=== PATIENT | female | born 1985 | race Caucasian/White ===

== ENCOUNTER 2017-08-22 08:20 | Emergency (ER) | payer MEDICAID ==
[2017-08-22] MEDS ORDERED: HYDROMORPHONE HCL INJ/PF 2 MG/ML AMPULE IV ONE (09:06)
[2017-08-22] MEDS ORDERED: ONDANSETRON HCL INJ/PF 4 MG/2 ML SDV IV ONE (09:06)
--- NOTE | 2017-08-22 09:11 | ER Document Report ---
ED Medical Screen (RME) - General Chief Complaint: Abdominal Pain Stated Complaint: CHEST/ABDOMINAL PAIN Time Seen by Provider: 08/22/17 09:06 Notes: Patient is a 32-year-old female, past medical history pancreatitis 5 years ago, history of alcoholism, presents with epigastric and right upper quadrant abdominal pain for the past day. She was drinking wine 2 nights ago celebration of her sister's birthday. Denies history of gallstones. PE: RUQ tenderness. NAD. RRR. Lungs CTAB. I have greeted and performed a rapid initial assessment of this patient. A comprehensive ED assessment and evaluation of the patient, analysis of test results and completion of the medical decision making process will be conducted by additional ED providers. TRAVEL OUTSIDE OF THE [place] IN LAST 30 DAYS: No - Related Data Allergies/Adverse Reactions: No Known Allergies Allergy (Unverified 08/22/17 08:21) Past Medical History - Social History Chew tobacco use (# tins/day): No Frequency of alcohol use: Occasional Drug Abuse: None Renal/ Medical History: Denies: Hx Peritoneal Dialysis Physical Exam - Vital signs Vitals: Temp Pulse Resp BP Pulse Ox 97.5 F 80 18 131/89 H 97 08/22/17 08:35 08/22/17 08:35 08/22/17 08:35 08/22/17 08:35 08/22/17 08:35 Course - Vital Signs Vital signs: Temp Pulse Resp BP Pulse Ox 97.5 F 80 18 131/89 H 97 08/22/17 08:35 08/22/17 08:35 08/22/17 08:35 08/22/17 08:35 08/22/17 08:35
[2017-08-22 09:36] LABS: ABSOLUTE BASOPHILS # (AUTO) 0.1 10^3/uL (0.0-0.2); ABSOLUTE EOSINOPHILS # (AUTO) 0.1 10^3/uL (0.0-0.6); ABSOLUTE LYMPHOCYTES (AUTO) 3.1 10^3/uL (0.5-4.7); ABSOLUTE MONOCYTES (AUTO) 0.8 10^3/uL (0.1-1.4); BASOPHILS % (AUTO) 0.7 % (0-2); EOSINOPHILS % (AUTO) 0.5 % (0-6); HEMATOCRIT 42.4 % (36.0-47.0); HEMOGLOBIN 14.4 g/dL (12.0-15.5); LYMPHOCYTES % (AUTO) 28.5 % (13-45); MEAN CORPUSCULAR HEMOGLOBIN 30.9 pg (27.0-33.4); MEAN CORPUSCULAR VOLUME 91 fl (80-97); MONOCYTES % (AUTO) 7.5 % (3-13); PLATELET COUNT 340 10^3/uL (150-450); RED BLOOD COUNT 4.66 10^6/uL (3.72-5.28); RED CELL DISTRIBUTION WIDTH 14.8 % (11.5-14.0); SEGMENTED NEUTROPHILS % (AUTO) 62.8 % (42-78); TOTAL CELLS COUNTED % (AUTO) 100 %; WHITE BLOOD COUNT 11.1 10^3/uL (4.0-10.5)
[2017-08-22 09:40] LABS: APPEARANCE,URINE CLEAR; BILIRUBIN,URINE NEGATIVE (NEGATIVE); COLOR,URINE STRAW; GLUCOSE, URINE NEGATIVE (NEGATIVE); KETONES,URINE NEGATIVE (NEGATIVE); LEUKOCYTE ESTERASE,URINE NEGATIVE (NEGATIVE); NITRITE,URINE NEGATIVE (NEGATIVE); PROTEIN,URINE NEGATIVE (NEGATIVE); URINE SPECIFIC GRAVITY 1.008; UROBILINOGEN,URINE NEGATIVE mg/dL (<2.0)
[2017-08-22] MEDS ORDERED: NORMAL SALINE 1000 ML 1,000 ML IV ONE (09:42)
--- NOTE | 2017-08-22 09:45 | ER Document Report ---
ED General - General Chief Complaint: Abdominal Pain Stated Complaint: CHEST/ABDOMINAL PAIN Time Seen by Provider: 08/22/17 09:06 Notes: 32-year-old female presents to the ER complaining of epigastric and right upper quadrant abdominal pain. Patient has a long history of alcoholic pancreatitis. Patient has been out drinking due to her daughter's birthday. The patient complains of epigastric and right upper quadrant pain causes aching similar to her prior episodes of pancreatitis. She has had nausea but denies vomiting. Describes the pain as severe drinking does make it worse. Denies rashes fever chills sore throat. Denies chest pain denies shortness of breath. Denies any falls or trauma. Denies black bloody or tarry stools. Denies hematuria or dysuria. TRAVEL OUTSIDE OF THE [place] IN LAST 30 DAYS: No - Related Data Allergies/Adverse Reactions: amoxicillin Allergy (Verified 08/22/17 09:32) Penicillins Allergy (Verified 08/22/17 09:32) Past Medical History - Social History Smoking Status: Former Smoker Chew tobacco use (# tins/day): No Frequency of alcohol use: Occasional Drug Abuse: None Family History: None Patient has suicidal ideation: No Patient has homicidal ideation: No Renal/ Medical History: Denies: Hx Peritoneal Dialysis Review of Systems - Review of Systems Cardiovascular: denies: Chest pain Respiratory: denies: Short of breath Gastrointestinal: Abdominal pain, Nausea. denies: Diarrhea, Vomiting, Constipation Genitourinary: denies: Dysuria, Hematuria -: Yes All other systems reviewed and negative Physical Exam - Vital signs Vitals: Temp Pulse Resp BP Pulse Ox 97.5 F 80 18 131/89 H 97 08/22/17 08:35 08/22/17 08:35 08/22/17 08:35 08/22/17 08:35 08/22/17 08:35 - Notes Notes: GENERAL_APPEARANCE: well_nourished, alert, cooperative, appears uncomfortable VITALS: reviewed, see vital signs table. HEAD: no_swelling\tenderness on the head. EYES: PERRL, EOMI, conjunctiva_clear. NOSE: no_nasal_discharge. MOUTH: (-)decreased moisture. THROAT: no_tonsilar_inflammation, no_airway_obstruction. no_lymphadenopathy NECK: supple, no_neck_tenderness, (-)thyromegaly. BACK: no_back_tenderness. CHEST_WALL: no_chest_tenderness. LUNGS: no_wheezing, no_rales, no_rhonchi, (-)accessory muscle use, good air exchange bilateral. HEART: normal_rate, normal_rhythm, normal_S1, normal_S2, (-)S3, (-)S4, no_ murmur, no_rub. ABDOMEN: normal_BS, soft, epigastric_abd_tenderness, (-)guarding, (-)rebound, no_organomegaly, no_abd_masses. EXTREMITIES: good pulses in all_extremities, no_swelling\tenderness in the extremities, no_edema. SKIN: warm, dry, good_color, no_rash. MENTAL_STATUS: speech_clear, oriented_X_3, normal_affect, responds_ appropriately to questions. Course - Re-evaluation Re-evalutation: 08/22/17 09:44 Triage placed orders. The patient has a history of pancreatitis and has been out drinking alcohol. She is having epigastric and right upper quadrant abdominal pain. Nausea. She still smells of alcohol will get an alcohol level. We will give her IV fluids. Will check some lab work triage ordered an ultrasound. 08/22/17 12:28 Abdomen Ultrasound 08/22/17 09:11 IMPRESSION: Contracted gallbladder without stones. Laboratory 08/22/17 08/22/17 08/22/17 09:10 09:10 09:10 WBC 11.1 H RBC 4.66 Hgb 14.4 Hct 42.4 MCV 91 MCH 30.9 MCHC 34.0 RDW 14.8 H Plt Count 340 Seg Neutrophils % 62.8 Lymphocytes % 28.5 Monocytes % 7.5 Eosinophils % 0.5 Basophils % 0.7 Absolute Neutrophils 7.0 Absolute Lymphocytes 3.1 Absolute Monocytes 0.8 Absolute Eosinophils 0.1 Absolute Basophils 0.1 Sodium 144.9 Potassium 4.5 Chloride 106 Carbon Dioxide 27 Anion Gap 12 BUN 17 Creatinine 0.70 Est GFR ( Amer) > 60 Est GFR (Non-Af Amer) > 60 Glucose 90 Calcium 9.3 Total Bilirubin 0.4 Direct Bilirubin 0.3 Neonat Total Bilirubin Not Reportable Neonat Direct Bilirubin Not Reportable Neonat Indirect Bili Not Reportable AST 63 H ALT 44 Alkaline Phosphatase 65 Total Protein 8.1 Albumin 4.8 Lipase 130.5 Urine Color STRAW Urine Appearance CLEAR Urine pH 5.0 Ur Specific [place] 1.008 Urine Protein NEGATIVE Urine Glucose (UA) NEGATIVE Urine Ketones NEGATIVE Urine Blood MODERATE H Urine Nitrite NEGATIVE Urine Bilirubin NEGATIVE Urine Urobilinogen NEGATIVE Ur Leukocyte Esterase NEGATIVE Urine WBC (Auto) 1 Urine RBC (Auto) 0 Urine Bacteria (Auto) TRACE Urine Mucus (Auto) RARE Urine Ascorbic Acid NEGATIVE Urine HCG, Qual NEGATIVE Serum Alcohol 08/22/17 09:10 WBC RBC Hgb Hct MCV MCH MCHC RDW Plt Count Seg Neutrophils % Lymphocytes % Monocytes % Eosinophils % Basophils % Absolute Neutrophils Absolute Lymphocytes Absolute Monocytes Absolute Eosinophils Absolute Basophils Sodium Potassium Chloride Carbon Dioxide Anion Gap BUN Creatinine Est GFR ( Amer) Est GFR (Non-Af Amer) Glucose Calcium Total Bilirubin Direct Bilirubin Neonat Total Bilirubin Neonat Direct Bilirubin Neonat Indirect Bili AST ALT Alkaline Phosphatase Total Protein Albumin Lipase Urine Color Urine Appearance Urine pH Ur Specific [place] Urine Protein Urine Glucose (UA) Urine Ketones Urine Blood Urine Nitrite Urine Bilirubin Urine Urobilinogen Ur Leukocyte Esterase Urine WBC (Auto) Urine RBC (Auto) Urine Bacteria (Auto) Urine Mucus (Auto) Urine Ascorbic Acid Urine HCG, Qual Serum Alcohol 200 Patient blood alcohol of 200. Spoke with her about alcohol cessation and the effects on pancreatitis. She verbalized understanding. She does not want any kind detox resources. Patient is feeling better. Ultrasound showed no cholecystitis. Work was fairly normal she had a little bit of blood in her urine but the etiology of this is difficult to tell there is nothing to suggest infection I suggested follow-up. Patient will follow up with her family doctor. - Vital Signs Vital signs: Temp Pulse Resp BP Pulse Ox 97.5 F 80 18 131/89 H 97 08/22/17 08:35 08/22/17 08:35 08/22/17 08:35 08/22/17 08:35 08/22/17 08:35 - Laboratory Result Diagrams: 08/22/17 09:10 08/22/17 09:10 Laboratory results interpreted by me: 08/22/17 08/22/17 08/22/17 09:10 09:10 09:10 WBC 11.1 H RDW 14.8 H AST 63 H Urine Blood MODERATE H Discharge - Discharge Clinical Impression: Alcoholic pancreatitis Qualifiers: Chronicity: acute Acute pancreatitis complication: no infection or necrosis Qualified Code(s): K85.20 - Alcohol induced acute pancreatitis without necrosis or infection Condition: Good Disposition: HOME, SELF-CARE Instructions: Pancreatitis ([facility]) Prescriptions: Ondansetron [Zofran Odt 4 mg Tablet] 1 - 2 tab PO Q4H PRN #15 tab.rapdis PRN Reason: For Nausea/Vomiting
[2017-08-22 09:48] LABS: ALANINE AMINOTRANSFERASE 44 U/L (9-52); ALBUMIN 4.8 g/dL (3.5-5.0); ALKALINE PHOSPHATASE 65 U/L (38-126); ANION GAP 12 (5-19); ASPARTATE AMINO TRANSFERASE 63 U/L (14-36); BILIRUBIN,DIRECT 0.3 mg/dL (0.0-0.4); BILIRUBIN,TOTAL 0.4 mg/dL (0.2-1.3); BLOOD UREA NITROGEN 17 mg/dL (7-20); CALCIUM 9.3 mg/dL (8.4-10.2); CARBON DIOXIDE 27 mmol/L (22-30); CHLORIDE 106 mmol/L (98-107); GLUCOSE 90 mg/dL (75-110); LIPASE 130.5 U/L (23-300); POTASSIUM 4.5 mmol/L (3.6-5.0); SODIUM 144.9 mmol/L (137-145); TOTAL PROTEIN 8.1 g/dL (6.3-8.2)
--- NOTE | 2017-08-22 12:07 | RADIOLOGY REPORT (SQ) ---
EXAM DESCRIPTION: U/S ABDOMEN LIMITED W/O DOP COMPLETED DATE/TIME: 08/22/2017 11:56 am REASON FOR STUDY: RUQ tenderness COMPARISON: None. TECHNIQUE: Dynamic and static grayscale images acquired of the abdomen and recorded on PACS. Additio nal selected color Doppler and spectral images recorded. LIMITATIONS: None. FINDINGS: PANCREAS: No masses. Visualized pancreatic duct normal caliber. LIVER: No masses. Echotexture normal. LIVER VASCULATURE: Normal directional flow of the main portal vein and hepatic veins. GALLBLADDER: Contracted. No stones. ULTRASOUND-DETECTED URIAS'S SIGN: Positive. INTRAHEPATIC DUCTS AND COMMON DUCT: CBD and intrahepatic ducts normal caliber. No filling defects. INFERIOR VENA CAVA: Normal flow. AORTA: No aneurysm. RIGHT KIDNEY: Normal size. Normal echogenicity. No solid or suspicious masses. No hydronephrosis. No calcifications. PERITONEAL AND RIGHT PLEURAL SPACE: No ascites or effusions. OTHER: No other significant findings. IMPRESSION: Contracted gallbladder without stones. TECHNICAL DOCUMENTATION: JOB ID: [id number] [employer]- All Rights Reserved Reading location - IP/workstation name: [email or web address]
[2017-08-22 12:39] VITALS: BP 109/80
--- NOTE | 2017-08-22 14:28 | EKG REPORT ---
SEVERITY:- BORDERLINE ECG - SINUS RHYTHM PROBABLE LEFT ATRIAL ABNORMALITY : Confirmed by: Gagan Alvarez 22-Aug-2017 14:27:13
== END 2017-08-22 12:44 | disposition home or self-care (01) ==
LOC: ER 08:20
DX: K85.20 Alcohol induced acute pancreatitis without necrosis or infection (principal); K82.0 Obstruction of gallbladder; R10.13 Epigastric pain; R10.11 Right upper quadrant pain; R31.9 Hematuria, unspecified; R11.0 Nausea; Z88.0 Allergy status to penicillin; Z87.891 Personal history of nicotine dependence
CPT/HCPCS: 93005; 99284; 96361; 96374; 36415; 80307; 83690; 85025; 81025; 80053; 81001; 76705; 93010; J2405; J7030